=== PATIENT | male | born 1995 | race Caucasian/White ===

== ENCOUNTER 2020-05-26 11:21 | Emergency (ER) | payer SELFPAY ==
[2020-05-26 11:23] VITALS: BP 121/89; PULSE 113; RESP 18; TEMP 36.2; O2SAT 97; BMI 26.6
[2020-05-26 11:30] VITALS: BP 123/88; PULSE 113; RESP 18; O2SAT 99
--- NOTE | 2020-05-26 11:35 | ED_ITS ---
HPI - COVID General: Chief Complaint: COVID symptoms Stated Complaint: Cough/SOB Time Seen by Provider: 05/26/20 11:25 Source: patient Mode of arrival: ambulatory Limitations: no limitations Triage information: Has fever, cough or shortness of breath . No known COVID + exposure last 14 days History of Present Illness: HPI Narrative: Patient is a 25-year-old male who presents to the emergency department with complaints of cough, nasal congestion, mild shortness of breath. Symptoms started about 2 days ago and have not gotten significantly worse. He states his friends think he has Covid and so he was asked to come in here for evaluation and testing. He denies any fever, denies any nausea or vomiting, denies any change in smell or taste. He feels fine. MD complaint: has COVID symptoms Prior covid testing: no COVID 19 common symptoms: positive cough, non-productive cough, dyspnea and nasal congestion; negative fever(s), chills, productive cough, fatigue, body aches, headache(s), loss of sense of smell and/or taste, throat pain, nausea, vomiting or diarrhea COVID 19 other sytmptoms: negative chest pain, pleuritic pain, requiring oxygen, requiring more oxygen, respiratory distress, cyanosis, lethargy, confusion, new neurological complaints or other concerning symptoms Onset (ago): day(s) (2) Severity: mild Treatment prior to arrival: none COVID Results: Nasal/Oral Coronavirus 2019 PCR Pending 05/26/20 11:43 05/26/20 Review of Systems General: Reports: 10 or more systems reviewed and unremarkable except in HPI and below Const: Denies: fever(s), chills, body aches or fatigue Eyes: Denies: change in vision or blurry vision ENMT: Reports: nasal congestion; Denies: throat pain Card: Denies: chest pain Resp: Reports: dyspnea and non-productive cough; Denies: productive cough GI: Denies: nausea, vomiting or diarrhea : Denies: flank pain, dysuria, urinary frequency, urinary urgency or urinary hesitancy Musc: Denies: neck pain, back pain or extremity swelling Skin/Breast: Denies: rash, pruritus or erythema Neuro: Denies: headache(s) or confusion Endo: Denies: polyuria, polydipsia or tired all the time Physical Exam Const: COMMON NORMALS: no acute distress, average body habitus, patient oriented x3, no limitations, healthy appearing, alert and well nourished HENMT: COMMON NORMALS: normocephalic, atraumatic and moist oral mucous membranes HEAD & SCALP: normocephalic and atraumatic Neck/C-Spine: COMMON NORMALS: no meningeal signs and no JVD Resp: COMMON NORMALS: normal respiratory effort, No retractions, No use of accessory muscles, clear to auscultation bilaterally and percussion normal AUSCULTATION: clear to auscultation bilaterally PERCUSSION: percussion normal Cardio: COMMON NORMALS: no JVD, regular rate, regular rhythm, S1 normal heart sound present, S2 normal heart sound present, No gallops present (Cardio), No clicks present (Cardio), No murmurs present (Cardio), No rub (Cardio) and Peripheral pulses 2+ throughout RATE: regular rate RHYTHM: regular rhythm HEART SOUNDS: S1 normal heart sound present and S2 normal heart sound present PERIPHERAL PULSES: Peripheral pulses 2+ throughout GI: COMMON NORMALS: Normal to inspection, nondistended, normoactive bowel sounds present, Soft to palpation, non-tender, No hepatosplenomegaly present, no masses and no bruits PALPATION: Yes Soft to palpation and Yes No hepatosplenomegaly present Extremity: COMMON NORMALS: normal to inspection, full ROM, capillary refill normal, no calf tenderness and no pedal edema Neuro: COMMON NORMALS: patient oriented x3 SENSORIUM/ORIENTATION: Yes alert MENINGEAL SIGNS: Yes no meningeal signs Skin: COMMON NORMALS: no rashes or lesions noted, no wounds, turgor normal, no jaundice, no petechiae and no mottling GENERAL SKIN EXAM: no rashes or lesions noted and turgor normal Course Vital Signs: Vital signs: Vital Signs Temperature 97.2 F L 05/26/20 11:49 Pulse Rate 113 H 05/26/20 11:49 Respiratory Rate 18 05/26/20 11:49 Blood Pressure 123/88 05/26/20 11:49 Pulse Oximetry 99 05/26/20 11:49 MDM - COVID MDM Narrative: Medical decision making narrative: 25-year-old male who presents to the emergency department for Covid testing. Symptoms started 2 days ago and are mild with nasal congestion, mild cough, mild shortness of breath. No fever no loss of sense of taste or smell. Vital signs in the emergency department are all normal other than heart rate about 105 when I examined him. No fever, oxygen saturation in the upper 90s on room air. Because the symptoms started only 2 days ago I do not think is appropriate to do the rapid Covid testing. Will order the PCR test and he will be discharged home. He will be given Covid precaution instructions and advised to self isolate until he receives his results or if he thinks he is getting worse he needs to return to the emergency department for further testing and evaluation. He voiced understanding and is in agreement with the plan Medical Records: Attestation: I reviewed the patient's medical records. COVID Results: Nasal/Oral Coronavirus 2019 PCR Pending 05/26/20 11:43 05/26/20 Monoclonal Antibody Treatments Inclusion/Exclusion Criteria weight >/= 40 kg and negative or no COIVD test (DO NOT GIVE) age not >/= 65, BMI not >/= 35, does not have diabetes, does not have CKD, not receiving immunosuppressive therapy, does not have immunosuppressive disease, not >/= 55 with hypertension, not >/= 55 with diabetes, not >/= 55 with COPD/lung disease, not 12-17y with BMI >/= 85th percentile, not 12-17y with heart disease, not 12-17y with sickle cell disease, not 12-17y with neurodevelopemental d/o, not 12-17y with asthma/RAD/lung disease and not 12-17y w/ medical front desk specialist dependence not requiring hospitalization and not requiring oxygen (if not chronically on oxygen) Plan for treatment Does not meet criteria (DO NOT GIVE) Discharge Plan Discharge Patient Disposition: Home Clinical Impression: Suspected severe acute respiratory syndrome coronavirus 2 (SARS-CoV-2) infection Condition: Stable Discharge Orders: Discharge ED (Routine); Ordered 05/26/20 Ordered By: Michele Chandler Referrals: Josh Thomas MD [Primary Care Provider] - 1-3 days Discharge Diet: Usual diet Discharge Activity: Resume usual activity Patient Instructions: Viral Syndrome (ED) Activity Restrictions/Additional Instructions: Return for any new or worsening symptoms. You need to self isolate until you receive your results of the Covid test. Drink plenty of fluids to keep well-hydrated. Follow-up with your primary care provider within 3 days via telemedicine. You will be contacted with the results of your Covid test when we have it in a couple of days. Coding Level of Care Code ED Track Production Engineer for [employer] Fwd Exam Comprehensive
[2020-05-26 11:44] VITALS: O2SAT 99
[2020-05-26 11:49] VITALS: BP 123/88; PULSE 113; RESP 18; TEMP 36.2; O2SAT 99
[2020-05-27 14:50] LABS: Coronavirus Test Green County Not Detected
--- NOTE | 2020-05-27 16:13 | PC.NURSE ---
Patient called to be notified of COVID results at this time. No answer, message left.
== END 2020-05-26 11:58 | disposition home or self-care (01) ==
LOC: ER 13:27
PROVIDERS: Emergency Provider Family Medicine; PCP Family Medicine
DX: Z20.828 Contact with and (suspected) exposure to other viral communicable diseases (principal)
CPT/HCPCS: 87635; 99282